=== PATIENT | male | born 1995 | race Caucasian/White ===

== ENCOUNTER 2017-06-24 07:39 | Emergency (ER) | payer SELFPAY ==
[~2017-06-24] VITALS: Ht 175.3 cm; Wt 54.4 kg
[~2017-06-24 07:39] MED LIST: NAPR500T PO; TRAM50TA2 PO
[2017-06-24] MEDS ORDERED: IBUPROFEN 800 MG (MOTRIN) TAB PO STA (09:29)
--- NOTE | 2017-06-24 09:29 | ED Integumentary General ---
General Chief Complaint: Skin/Wound Problems Stated Complaint: POSS SPIDER BITE Nursing Triage Note: PT STATES HAS SPIDER BITE FROM FRIDAY, STATES DID SEE SPIDER THAT BIT HIM, UPPER AREA R RIB AREA REDDEND AREA WITH BITE AREA NOTED Source: patient Exam Limitations: no limitations History of Present Illness Time seen by provider: 09:00 Initial Comments Here with report of spider bite to his right flank. States that he felt something crawling inside [employer] it and found the spider in her shirt. Subsequently had a right onto his right flank. This occurred a couple days ago and the pain has worsened. States that he was not able to sleep last night due to pain. Denies other injury or concerns. Timing/Duration: getting worse Severity: moderate Location: torso Possible Cause: insect bite Associated Symptoms: edema, No fever, No flushing, No rash Allergies and Home Medications Allergies Coded Allergies: No Known Drug Allergies (Unverified , 09/04/16) Home Medications Tramadol HCl 50 Mg Tablet, 50 MG PO Q4H PRN for PAIN, #14 Ref 0 Prescribed by: TAMERA INFANTE on 09/04/16 4076 Constitutional: see HPI Respiratory: no symptoms reported Cardiovascular: no symptoms reported Gastrointestinal: no symptoms reported Skin: see HPI, change in color, lesions Past Fuudqft-Njueok-Uxqpms Hx Patient Social History Alcohol Use: Rarely Uses Number of Drinks Today: 0 Alcohol Beverage of Choice: Beer Recreational Drug Use: No Smoking Status: Current Everyday Smoker Type Used: Cigarettes Recent Foreign Travel: No Contact w/Someone Who Travel: No Recent Infectious Disease Expo: No Recent Hopitalizations: No Physical Abuse: No Sexual Abuse: No Immunizations Up To Date Tetanus Booster (TDap): More than 5yrs Seasonal Allergies Seasonal Allergies: No Surgeries History of Surgeries: No Respiratory History of Respiratory Disorde: No Cardiovascular History of Cardiac Disorders: No Neurological History of Neurological Disord: No Reproductive System Hx Reproductive Disorders: No Gastrointestinal History of Gastrointestinal Di: No Musculoskeletal History of Musculoskeletal Dis: No Endocrine History of Endocrine Disorders: No Cancer History of Cancer: No Psychosocial History of Psychiatric Problem: No Suicide Risk Score: 0 Integumentary History of Skin or Integumenta: No Blood Transfusions History of Blood Disorders: No Adverse Reaction to a Blood Tr: No Reviewed Nursing Assessment Reviewed/Agree w Nursing PMH: Yes Family Medical History Significant Family History: No Pertinent Family Hx Physical Exam Vital Signs Vital Sign - Last 12Hours 06/24/17 08:00 Temp 98.3 Pulse 106 Resp 18 B/P (MAP) 121/76 Pulse Ox 99 Capillary Refill : Less Than 3 Seconds General Appearance: WD/WN, no apparent distress Cardiovascular: regular rate, rhythm, no murmur Respiratory: lungs clear, normal breath sounds Gastrointestinal: non tender, soft Skin: warm/dry, other (0.5 x 0.5 cm central nodules surrounded by 2 x 2 centimeter area of induration and inflammation to the right flank below the rib line. Very tender to palpation. No obvious fluctuance.) Progress/Results/Core Measures Results/Orders My Orders Orders - ALFONSO MEHTA MD Ibuprofen Tablet (Motrin Tablet) (06/24/17 09:29) Vital Signs/I&O Vital Sign - Last 12Hours 06/24/17 08:00 Temp 98.3 Pulse 106 Resp 18 B/P (MAP) 121/76 Pulse Ox 99 Blood Pressure Mean: 91 Progress Note : Progress Note Seen and evaluated. Ibuprofen 800 mg by mouth given. Discharged home with return precautions. Patient verbalize understanding instructions and agreement with plan. Departure Impression Impression: Primary Impression: Spider bite wound Qualified Codes: T63.304A - Toxic effect of unspecified spider venom, undetermined, initial encounter Disposition: 01 HOME, SELF-CARE Condition: Stable Departure-Patient Inst. Decision time for Depature: 09:32 Referrals: NO,LOCAL PHYSICIAN (PCP/Family) Primary Care Physician Patient Instructions: Spider Bites Add. Discharge Instructions: All discharge instructions reviewed with patient and/or family. Voiced understanding. You may use antibiotic ointment with pain relief over wound twice daily as needed. You may take ibuprofen 800 mg every 8 hours as needed for pain. You may take Tylenol 1000 mg every 8 hours as needed for pain if you're not taking the prescribed pain medicine as they both have acetaminophen in them. Follow up with your DrDestin in a few days for recheck. Return for worse pain, fever, vomiting, weakness, breathing problems or other concerns as needed. Scripts Hydrocodone/Acetaminophen (Hydrocodon -Acetaminophen 5-325) 1 Each Tablet 1-2 EACH PO Q6H Y for PAIN-MODERATE, #5 TAB 0 Refills Prov: ALFONSO MEHTA MD 06/24/17 ALFONSO MEHTA MD Jun 24, 2017 09:29
[2017-06-24] MEDS ORDERED: HYDR-3812 PO (09:34)
[2017-06-24 09:39] VITALS: BP 121/76
== END 2017-06-24 09:39 | disposition home or self-care (01) ==
LOC: EDUNIT# 07:39 → ER 07:42
DX: S30.861A Insect bite (nonvenomous) of abdominal wall, initial encounter (principal); F17.210 Nicotine dependence, cigarettes, uncomplicated; W57.XXXA Bitten or stung by nonvenomous insect and other nonvenomous arthropods, initial encounter
CPT/HCPCS: 99283

== ENCOUNTER 2017-08-03 17:50 | Emergency (ER) | payer SELFPAY ==
[~2017-08-03] VITALS: Ht 175.3 cm; Wt 54.4 kg
[~2017-08-03 17:50] MED LIST changes: +HYDR-3812 PO
[2017-08-03] MEDS ORDERED: NS IV 1000 ML 1,000 ML IV SCH (18:30)
[2017-08-03] MEDS ORDERED: KETOROLAC 30 MG/ML VIAL IVP ONE (18:30)
[2017-08-03 18:35] LABS: BILIRUBIN,URINE NEGATIVE (NEGATIVE); KETONES,URINE NEGATIVE (NEGATIVE); LEUKOCYTE ESTERASE ,URINE 1+ (NEGATIVE); NITRITE,URINE NEGATIVE (NEGATIVE); PH,URINE 7 (5-9); PROTEIN,URINE NEGATIVE (NEGATIVE); UROBILINOGEN,URINE 4 MG/DL (NORMAL)
[2017-08-03 18:35] LABS: BASOPHILS % (AUTO) 0 % (0-10); EOSINOPHILS # (AUTO) 0.3 10^3/uL (0.0-0.3); EOSINOPHILS % (AUTO) 3 % (0-10); LYMPHOCYTES % (AUTO) 28 % (12-44); MEAN CORPUSCULAR HEMOGLOBIN 29 PG (25-34); MEAN CORPUSCULAR HGB CONC 33 G/DL (32-36); MEAN CORPUSCULAR VOLUME 88 FL (80-99); MEAN PLATELET VOLUME 10.4 FL (7.4-10.4); MONOCYTES # (AUTO) 0.4 X 10^3 (0.0-1.0); MONOCYTES % (AUTO) 6 % (0-12); NEUTROPHILS # (AUTO) 4.6 X 10^3 (1.8-7.8); NEUTROPHILS % (AUTO) 62 % (42-75); PLATELET COUNT 169 10^3/uL (130-400); RED CELL DISTRIBUTION WIDTH 12.7 % (10.0-14.5); WHITE BLOOD COUNT 7.3 10^3/uL (4.3-11.0)
[2017-08-03 18:53] LABS: ALANINE AMINOTRANSFERASE 8 U/L (0-55); ALBUMIN 4.5 GM/DL (3.2-4.5); ANION GAP 11 MMOL/L (5-14); ASPARTATE AMINO TRANSFERASE 14 U/L (5-34); BILIRUBIN,TOTAL 1.6 MG/DL (0.1-1.0); BLOOD UREA NITROGEN 13 MG/DL (7-18); BUN/CREATININE RATIO 13; CALCIUM 9.5 MG/DL (8.5-10.1); CARBON DIOXIDE 23 MMOL/L (21-32); CHLORIDE 106 MMOL/L (98-107); CREATININE SERUM 1.04 MG/DL (0.60-1.30); GFR ESTIMATED > 60; GLUCOSE 114 MG/DL (70-105); POTASSIUM 4.4 MMOL/L (3.6-5.0); SODIUM 140 MMOL/L (135-145); TOTAL PROTEIN 7.5 GM/DL (6.4-8.2)
[2017-08-03] MEDS ORDERED: IBUP-1780 PO (19:28)
[2017-08-03] MEDS ORDERED: HYDR-757 PO (19:28)
[2017-08-03] MEDS ORDERED: SULF1TAB35 PO (19:28)
[2017-08-03] MEDS ORDERED: TAMS0.4C98 PO (19:28)
--- NOTE | 2017-08-03 19:28 | ED GU-Male ---
General Chief Complaint: -Male Stated Complaint: R ABD PAIN Nursing Triage Note: ARRIVED VIA POV TO ROOM 06 WITHOUT DIFFICULTY. COMPLAINS OF LOWER ABD PAIN WHEN VOIDING FOR A COUPLE OF DAYS. Source: patient Exam Limitations: no limitations History of Present Illness Time seen by provider: 18:20 Initial Comments 1 to ER with reports of urinary frequency, sensation of incomplete bladder emptying, "peeing straight blood". He also has some pain in the right flank as well. This is been going on for couple of days. Timing/Duration: constant Severity/Quality: moderate Location: suprapubic Radiation: none Activities at Onset: none Prior Genitourinary Problems: none Associated Symptoms: dysuria Allergies and Home Medications Allergies Coded Allergies: No Known Drug Allergies (Unverified , 09/04/16) Home Medications Hydrocodone/Acetaminophen 1 Each Tablet, 1-2 EACH PO Q6H PRN for PAIN-MODERATE, #5 Ref 0 Prescribed by: ALFONSO MEHTA on 06/24/17 0934 Hydrocodone/Acetaminophen 1 Each Tablet, 1 EACH PO Q4H PRN for PAIN-SEVERE, #14 Prescribed by: BEENA DONOVAN on 08/03/17 192 Ibuprofen 800 Mg Tablet, 800 MG PO Q8H PRN for PAIN, #30 Prescribed by: BEENA DONOVAN on 08/03/17 192 Sulfamethoxazole/Trimethoprim 1 Each Tablet, 1 EACH PO BID, #10 Prescribed by: BEENA DONOVAN on 08/03/17 192 Tamsulosin HCl 0.4 Mg Cap, 0.4 MG PO DAILY, #14 Prescribed by: BEENA DONOVAN on 08/03/171927 Tramadol HCl 50 Mg Tablet, 50 MG PO Q4H PRN for PAIN, #14 Ref 0 Prescribed by: TAMERA INFANTE on 09/04/16 180 Constitutional: see HPI EENTM: see HPI Respiratory: no symptoms reported Cardiovascular: no symptoms reported Genitourinary: see HPI, dysuria Musculoskeletal: no symptoms reported Skin: no symptoms reported Psychiatric/Neurological: No Symptoms Reported Endocrine: No Symptoms Reported Hematologic/Lymphatic: No Symptoms Reported Past Ildvvst-Rbkvnl-Bqzeby Hx Patient Social History Alcohol Use: Occasionally Uses Number of Drinks Today: AA Alcohol Beverage of Choice: Beer Recreational Drug Use: Yes (POT) Smoking Status: Current Everyday Smoker Type Used: Cigarettes Recent Foreign Travel: No Contact w/Someone Who Travel: No Recent Infectious Disease Expo: No Recent Hopitalizations: No Immunizations Up To Date Tetanus Booster (TDap): More than 5yrs Seasonal Allergies Seasonal Allergies: No Surgeries History of Surgeries: No Respiratory History of Respiratory Disorde: No Cardiovascular History of Cardiac Disorders: No Neurological History of Neurological Disord: No Reproductive System Hx Reproductive Disorders: No Gastrointestinal History of Gastrointestinal Di: No Musculoskeletal History of Musculoskeletal Dis: No Endocrine History of Endocrine Disorders: No HEENT History of HEENT Disorders: No Cancer History of Cancer: No Did You Recieve Any Treatments: No Psychosocial History of Psychiatric Problem: No Integumentary History of Skin or Integumenta: No Blood Transfusions History of Blood Disorders: No Adverse Reaction to a Blood Tr: No Family Medical History Significant Family History: No Pertinent Family Hx Physical Exam Vital Signs Vital Sign - Last 12Hours 08/03/17 18:20 Temp 98.0 Pulse 74 Resp 18 B/P (MAP) 124/83 Pulse Ox 98 Capillary Refill : Less Than 3 Seconds General Appearance: WD/WN, no apparent distress HEENT: PERRL/EOMI, normal ENT inspection Neck: non-tender, full range of motion Respiratory: normal breath sounds, no respiratory distress, no accessory muscle use Gastrointestinal: normal bowel sounds, non tender, soft Neurologic/Psychiatric: alert, normal mood/affect, oriented x 3 Skin: normal color, warm/dry Progress/Results/Core Measures Results/Orders Lab Results Laboratory Tests Test 08/03/17 18:25 08/03/17 18:30 Range/Units White Blood Count 7.3 4.3-11.0 10^3/uL Red Blood Count 5.40 4.35-5.85 10^6/uL Hemoglobin 15.8 13.3-17.7 G/DL Hematocrit 47 40-54 % Mean Corpuscular Volume 88 80-99 FL Mean Corpuscular Hemoglobin 29 25-34 PG Mean Corpuscular Hemoglobin Concent 33 32-36 G/DL Red Cell Distribution Width 12.7 10.0-14.5 % Platelet Count 169 130-400 10^3/uL Mean Platelet Volume 10.4 7.4-10.4 FL Neutrophils (%) (Auto) 62 42-75 % Lymphocytes (%) (Auto) 28 12-44 % Monocytes (%) (Auto) 6 0-12 % Eosinophils (%) (Auto) 3 0-10 % Basophils (%) (Auto) 0 0-10 % Neutrophils # (Auto) 4.6 1.8-7.8 X 10^3 Lymphocytes # (Auto) 2.0 1.0-4.0 X 10^3 Monocytes # (Auto) 0.4 0.0-1.0 X 10^3 Eosinophils # (Auto) 0.3 0.0-0.3 10^3/uL Basophils # (Auto) 0.0 0.0-0.1 10^3/uL Sodium Level 140 135-145 MMOL/L Potassium Level 4.4 3.6-5.0 MMOL/L Chloride Level 106 98-107 MMOL/L Carbon Dioxide Level 23 21-32 MMOL/L Anion Gap 11 5-14 MMOL/L Blood Urea Nitrogen 13 7-18 MG/DL Creatinine 1.04 0.60-1.30 MG/DL Estimat Glomerular Filtration Rate > 60 BUN/Creatinine Ratio 13 Glucose Level 114 H 70-105 MG/DL Calcium Level 9.5 8.5-10.1 MG/DL Total Bilirubin 1.6 H 0.1-1.0 MG/DL Aspartate Amino Transf (AST/SGOT) 14 5-34 U/L Alanine Aminotransferase (ALT/SGPT) 8 0-55 U/L Alkaline Phosphatase 76 40-136 U/L Total Protein 7.5 6.4-8.2 GM/DL Albumin 4.5 3.2-4.5 GM/DL Urine Color YELLOW Urine Clarity SLIGHTLY CLOUDY Urine pH 7 5-9 Urine Specific [place] 1.010 L 1.016-1.022 Urine Protein NEGATIVE NEGATIVE Urine Glucose (UA) NEGATIVE NEGATIVE Urine Ketones NEGATIVE NEGATIVE Urine Nitrite NEGATIVE NEGATIVE Urine Bilirubin NEGATIVE NEGATIVE Urine Urobilinogen 4 H NORMAL MG/DL Urine Leukocyte Esterase 1+ H NEGATIVE Urine RBC (Auto) 3+ H NEGATIVE Urine RBC 5-10 H /HPF Urine WBC 2-5 /HPF Urine Crystals PRESENT H /LPF Urine Amorphous Sediment MOD ANASTASIA URATES H /LPF Urine Bacteria NONE /HPF Urine Casts NONE /LPF Urine Mucus NONE /LPF Urine Culture Indicated NO My Orders Orders - BEENA DONOVAN [employer] Cbc With Automated Diff (08/03/17 18:28) Comprehensive Metabolic Panel (08/03/17 18:28) Ua Culture If Indicated (08/03/17 18:28) Chlamydia Dna Urine Test (08/03/17 18:28) Neis Axel Dna Urine Test (08/03/17 18:28) Saline Lock/Iv-Start (08/03/17 18:28) Ketorolac Injection (Toradol Injection) (08/03/17 18:30) Ns Iv 1000 Ml (Sodium Chloride 0.9%) (08/03/17 18:30) Ct Abd/Pelvis Wo(Kidney Stone) (08/03/17 18:58) Medications Given in ED Current Medications Medications Dose Ordered Sig/Chandler Route Start Time Stop Time Status Last Admin Dose Admin Ketorolac Tromethamine 30 mg ONCE ONCE IVP 08/03/17 18:30 08/03/17 18:31 DC 08/03/17 18:38 30 MG Vital Signs/I&O Vital Sign - Last 12Hours 08/03/17 18:20 Temp 98.0 Pulse 74 Resp 18 B/P (MAP) 124/83 Pulse Ox 98 Blood Pressure Mean: 97 Diagnostic Imaging Diagonstic Imaging: CT Comments NAME: OMARISTEVEN Fermin MED REC#: [id number] PT STATUS: REG ER : 1995 PHYSICIAN: BEENA DONOVAN [employer] ADMIT DATE: 08/03/17/ER Draft Date of Exam:08/03/17 CT ABD/PELVIS WO(KIDNEY STONE) PROCEDURE: CT urinary tract, rule out kidney stone. TECHNIQUE: Multiple contiguous axial images were obtained through the abdomen and pelvis without the use of intravenous contrast. INDICATION: Right flank pain. COMPARISON: None. FINDINGS: The lung bases are clear. The gallbladder, liver, spleen, pancreas, adrenal glands and right kidney unremarkable. There is questionable left-sided hydronephrosis and hydroureter. There is possibly a 3 mm obstructive stone in the distal left ureter. Due to the lack of abdominal fat, anatomy is difficult to fully separate. There is moderate constipation of the colon without obstruction. The urinary bladder is unremarkable. There is no overt prostate enlargement. No obvious inflammation seen. Osseous structures normal. IMPRESSION: Questionable left-sided hydronephrosis and hydroureter secondary to a 3 mm stone in the distal left ureter versus phlebolith. This could be further evaluated with postcontrast imaging with delayed renal urogram. Dictated on workstation # [id number] Dict: 08/03/171919 Trans: 08/03/171931 [facility] [id number] Interpreted by: MAYUR WHEELER Electronically signed by: Departure Communication (Admissions) Progress Notes 1923-patient states that his pain is completely gone after the Toradol and fluids. Impression Impression: Primary Impression: Left ureteral stone Disposition: HOME, SELF-CARE Condition: Improved Departure-Patient Inst. Decision time for Depature: 19:25 Referrals: NO,LOCAL PHYSICIAN (PCP/Family) Primary Care Physician Patient Instructions: Kidney Stones (DC) Add. Discharge Instructions: 1. Take medication as directed 2. Follow up with Dr Hendrix later this week 3. All discharge instructions reviewed with patient and/or family. Voiced understanding. Scripts Hydrocodone/Acetaminophen ([place] 5-325 Tablet) 1 Each Tablet 1 EACH PO Q4H Y for PAIN-SEVERE, #14 TAB Prov: BEENA DONOVAN APRN 08/03/17 Ibuprofen (Ibuprofen) 800 Mg Tablet 800 MG PO Q8H Y for PAIN, #30 TAB Prov: BEENA DONOVAN APRN 08/03/17 Tamsulosin HCl (Flomax) 0.4 Mg Cap 0.4 MG PO DAILY, #14 CAP Prov: BEENA DONOVAN APRN 08/03/17 Sulfamethoxazole/Trimethoprim (Bactrim Ds Tablet) 1 Each Tablet 1 EACH PO BID, #10 TAB Prov: BEENA DONOVAN APRN 08/03/17 BEENA DONOVAN APRN Aug 03, 2017 19:28
--- NOTE | 2017-08-03 19:33 | Diagnostic Imaging Report ---
PROCEDURE: CT urinary tract, rule out kidney stone. TECHNIQUE: Multiple contiguous axial images were obtained through the abdomen and pelvis without the use of intravenous contrast. INDICATION: Right flank pain. COMPARISON: None. FINDINGS: The lung bases are clear. The gallbladder, liver, spleen, pancreas, adrenal glands and right kidney unremarkable. There is questionable left-sided hydronephrosis and hydroureter. There is possibly a 3 mm obstructive stone in the distal left ureter. Due to the lack of abdominal fat, anatomy is difficult to fully separate. There is moderate constipation of the colon without obstruction. The urinary bladder is unremarkable. There is no overt prostate enlargement. No obvious inflammation seen. Osseous structures normal. IMPRESSION: Questionable left-sided hydronephrosis and hydroureter secondary to a 3 mm stone in the distal left ureter versus phlebolith. This could be further evaluated with postcontrast imaging with delayed renal urogram. Dictated by: Dictated on workstation # [id number]
[2017-08-03 19:53] VITALS: BP 124/83
[2017-08-04] MEDS ORDERED: ONDA4TAB8 PO (02:52)
[2017-08-06 08:06] LABS: CHLAMYDIA DNA URINE Not Detected (Not Detected); NEISSERIA GONORRHEA DNA URINE Not Detected (Not Detected)
== END 2017-08-03 19:55 | disposition home or self-care (01) ==
LOC: EDUNIT# 17:50 → ER 17:52
DX: N20.1 Calculus of ureter (principal); F17.210 Nicotine dependence, cigarettes, uncomplicated
CPT/HCPCS: 36415; 74176; 80053; 81000; 85025; 87491; 87591; 99282

== ENCOUNTER 2017-08-04 00:32 | Emergency (ER) | payer SELFPAY ==
[~2017-08-04] VITALS: Ht 165.1 cm; Wt 49.9 kg
[~2017-08-04 00:32] MED LIST changes: +HYDR-757 PO; +IBUP-1780 PO; +SULF1TAB35 PO; +TAMS0.4C98 PO
[2017-08-04] MEDS ORDERED: LACTATED RINGERS 1,000 ML IV ONE ×2 (00:38→01:48)
[2017-08-04] MEDS ORDERED: KETOROLAC 30 MG/ML VIAL IVP STA (00:38)
[2017-08-04] MEDS ORDERED: ONDANSETRON 4 MG/2 ML (SDV) Z0FRAN IVP ONE (00:45)
[2017-08-04] MEDS ORDERED: morphine INJ 10 MG/ML 1ML (SYR OR VIAL) ONE (00:49)
[2017-08-04] MEDS ORDERED: morphine INJ 10 MG/ML 1ML (SYR OR VIAL) IVP STA ×4 (00:57→02:29)
--- NOTE | 2017-08-04 01:18 | ED Abdominal Pain ---
General Chief Complaint: Abdominal/GI Problems Stated Complaint: KIDNEY STONES Nursing Triage Note: recent diagnosis with kidney stone, complaint of pelvic pain and vomitting Sepsis Screen: No Definite Risk Source of Information: Patient, Old Records History of Present Illness Time Seen By Provider: 00:28 Initial Comments PT ARRIVES VIA POV FROM HOME SEEN IN ER EARLIER THIS EVENING AND DX WITH KIDNEY STONE ( NEVER HAD KIDNEY STONES BEFORE) --SENT HOME WITH RX'S FOR HYDROCODONE, IBUPROFEN, FLOMAX, BACTRIM , BUT NOT SENT HOME WITH ANY MEDICATIONS PT STATES EARLIER, THE PAIN WAS IN RIGHT FLANK AND RLQ AND HAD A LITTLE PAIN IN SUPRAPUBIC AREA--PAIN HAD IMPROVED AT TIME OF DISMISSAL FROM ER--CT SHOWED LEFT DISTAL URETERAL STONE 15-20 MINUTES PRIOR TO ARRIVAL, PAIN BECAME SEVERE AND IS NOW ALL IN SUPRAPUBIC AREA, AND "FEELS LIKE HIS TESTICLES ARE IN A VISE"--NO FLANK PAIN NOW PT HAS HAD NAUSEA AND VOMITED X 3 JUST PRIOR TO ARRIVAL PT STATES HE VOIDED ONCE SINCE HE WAS DISMISSED FROM ER EARLIER, AND NOW HAS URGENCY BUT IS UNABLE TO VOID NO FEVER MULTIPLE FAMILY MEMBERS WITH KIDNEY STONES Allergies and Home Medications Allergies Coded Allergies: No Known Drug Allergies (Unverified , 09/04/16) Home Medications Hydrocodone/Acetaminophen 1 Each Tablet, 1-2 EACH PO Q6H PRN for PAIN-MODERATE, #5 Ref 0 Prescribed by: ALFONSO MEHTA on 06/24/17 0934 Hydrocodone/Acetaminophen 1 Each Tablet, 1 EACH PO Q4H PRN for PAIN-SEVERE, #14 Prescribed by: BEENA DONOVAN on 08/03/171927 Ibuprofen 800 Mg Tablet, 800 MG PO Q8H PRN for PAIN, #30 Prescribed by: BEENA DONOVAN on 08/03/171927 Ondansetron 4 Mg Tab.rapdis, 4 MG PO Q4H, #10 Prescribed by: WEI BURDICK on 08/04/17 0252 Sulfamethoxazole/Trimethoprim 1 Each Tablet, 1 EACH PO BID, #10 Prescribed by: BEENA DONOVAN on 08/03/171927 Tamsulosin HCl 0.4 Mg Cap, 0.4 MG PO DAILY, #14 Prescribed by: BEENA DONOVAN on 08/03/171927 Tramadol HCl 50 Mg Tablet, 50 MG PO Q4H PRN for PAIN, #14 Ref 0 Prescribed by: TAMERA INFANTE on 09/04/16 1806 Review of Systems Constitutional: no symptoms reported Gastrointestinal: See HPI, Abdominal Pain Genitourinary: See HPI Musculoskeletal: see HPI Past Vorynip-Sqzzrf-Zfxpzt Hx Patient Social History Alcohol Use: Occasionally Uses Alcohol Beverage of Choice: Beer Recreational Drug Use: No Smoking Status: Current Everyday Smoker Type Used: Cigarettes Recent Foreign Travel: No Contact w/Someone Who Travel: No Recent Infectious Disease Expo: No Recent Hopitalizations: No Immunizations Up To Date Tetanus Booster (TDap): More than 5yrs Seasonal Allergies Seasonal Allergies: No Surgeries History of Surgeries: No Respiratory History of Respiratory Disorde: No Cardiovascular History of Cardiac Disorders: No Neurological History of Neurological Disord: No Reproductive System Hx Reproductive Disorders: No Genitourinary History of Genitourinary Disor: Yes (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) Genitourinary Disorders: Kidney Stones Gastrointestinal History of Gastrointestinal Di: No Musculoskeletal History of Musculoskeletal Dis: No Endocrine History of Endocrine Disorders: No HEENT History of HEENT Disorders: No Cancer History of Cancer: No Did You Recieve Any Treatments: No Psychosocial History of Psychiatric Problem: No Integumentary History of Skin or Integumenta: No Blood Transfusions History of Blood Disorders: No Adverse Reaction to a Blood Tr: No Physical Exam Vital Signs VS - Last 72 Hours, by Label 08/04/17 08/04/17 00:50 03:00 Temp 98.9 98.9 Pulse 92 92 Resp 20 B/P (MAP) 149/97 Pulse Ox 97 O2 Delivery Room Air Room Air Capillary Refill : Less Than 3 Seconds General Appearance: thin, other (ANXIOUS, WRITHING, CRYING, HOLDING LOWER ABDOMEN) Respiratory: normal breath sounds Cardiovascular: tachycardia Gastrointestinal: soft, tenderness (SUPRAPUBIC) Back: no CVA tenderness Neurologic/Psychiatric: no motor/sensory deficits, alert, oriented x 3 Skin: normal color, warm/dry Progress/Results/Core Measures Results/Orders My Orders Orders - WEI BURDICK DO Saline Lock/Iv-Start (08/04/17 00:38) Ketorolac Injection (Toradol Injection) (08/04/17 00:38) Ondansetron Injection (Zofran Injectio (08/04/17 00:45) Saline Lock/Iv-Start (08/04/17 00:38) Lactated Ringers (Lr 1000 Ml Iv Solution (08/04/17 00:38) Morphine Injection (Morphine Injection (08/04/17 00:57) Morphine Injection (Morphine Injection (08/04/17 00:49) Morphine Injection (Morphine Injection (08/04/17 01:21) Morphine Injection (Morphine Injection (08/04/17 01:48) Saline Lock/Iv-Start (08/04/17 01:48) Lactated Ringers (Lr 1000 Ml Iv Solution (08/04/17 01:48) Abdomen/Kub 1view (08/04/17 01:48) Morphine Injection (Morphine Injection (08/04/17 02:00) Alfuzosin Tablet (Uroxatral Tablet) (08/04/17 02:30) Morphine Injection (Morphine Injection (08/04/17 02:29) Rx-Hydrocodone/Apap 5-325 Mg (Rx-Vicodin (08/04/17 03:00) Rx-Ondansetron Po (Rx-Zofran Po) (08/04/17 02:51) Medications Given in ED Current Medications Medications Dose Ordered Sig/Chandler Route Start Time Stop Time Status Last Admin Dose Admin Acetaminophen/ Hydrocodone Bitart 1 ea Q4H PRN PO 08/04/17 03:00 08/04/17 03:19 DC 08/04/17 03:00 1 EA Lactated Ringer's 1,000 ml @ 0 mls/hr Q0M ONCE IV 08/04/17 00:38 08/04/17 00:39 DC 08/04/17 00:44 0 MLS/HR Lactated Ringer's 1,000 ml @ 0 mls/hr Q0M ONCE IV 08/04/17 01:48 08/04/17 01:49 DC 08/04/17 01:53 0 MLS/HR Morphine Sulfate 5 mg ONCE ONCE IVP 08/04/17 02:00 08/04/17 02:01 DC 08/04/17 02:35 5 MG Ondansetron HCl 4 mg ONCE ONCE IVP 08/04/17 00:45 08/04/17 00:46 DC 08/04/17 00:44 4 MG Vital Signs/I&O Vital Sign - Last 12Hours 08/04/17 08/04/17 00:50 03:00 Temp 98.9 98.9 Pulse 92 92 Resp 20 B/P (MAP) 149/97 Pulse Ox 97 O2 Delivery Room Air Room Air Blood Pressure Mean: 114 Progress Note : Progress Note PAIN EASED WITH MEDICATIONS, AND PT ABLE TO VOID--VOIDED > 300 ML IN ER AND URINE PALE AND CLEAR. NO OBVIOUS STONE PASSED IN ER NAUSEA GONE AND PT ABLE TO TOLERATE WATER AND ICE CHIPS Diagnostic Imaging Comments KUB--NO ACUTE PROCESS, UNABLE TO IDENTIFY STONE--PENDING RADIOLOGIST REVIEW Reviewed: Reviewed by Me Departure Impression Impression: Primary Impression: Ureteral stone Disposition: HOME, SELF-CARE Condition: Improved Departure-Patient Inst. Referrals: NO,LOCAL PHYSICIAN (PCP) Primary Care Physician LIDIA SHAIKH MD Patient Instructions: Kidney Stones (DC) Add. Discharge Instructions: STRAIN ALL URINE--RETURN ANY STONES TO UROLOGIST OFFICE FOLLOW UP WITH DR. SHAIKH OR UROLOGIST OF CHOICE FOR FURTHER CARE--CALL IN AM FOR APPOINTMENT. RETURN TO ER IF WORSE All discharge instructions reviewed with patient and/or family. Voiced understanding. Scripts Ondansetron (Zofran Odt) 4 Mg Tab.rapdis 4 MG PO Q4H for Nausea/Vomiting, #10 TAB Prov: WEI BURDICK DO 08/04/17 WEI BURDICK DO Aug 04, 2017 01:18
[2017-08-04] MEDS ORDERED: morphine INJ 10 MG/ML 1ML (SYR OR VIAL) IVP ONE (02:00)
[2017-08-04] MEDS ORDERED: ALFUZOSIN HCL 10 MG TAB (UROXATRAL) PO SCH (02:30)
[2017-08-04] MEDS ORDERED: RX-ONDANSETRON 4 MG ODT (ZOFRAN) PPK #4 PO STA (02:51)
[2017-08-04] MEDS ORDERED: ONDA4TAB8 PO (02:52)
[2017-08-04 03:00] VITALS: BP 149/97
[2017-08-04] MEDS ORDERED: RX-HYDROCODONE/APAP 5/325 MG #4 TAB PK PO PRN (03:00)
--- NOTE | 2017-08-04 07:12 | Diagnostic Imaging Report ---
INDICATION: Pelvic pain. FINDINGS: The bowel gas pattern is nonspecific. There are no abnormal abdominal calcifications. The osseous structures are unremarkable. IMPRESSION: Nonspecific bowel gas pattern. Dictated by: Dictated on workstation # [id number]
== END 2017-08-04 03:00 | disposition home or self-care (01) ==
LOC: EDUNIT# 00:32 → ER 00:34
DX: N20.1 Calculus of ureter (principal); F17.210 Nicotine dependence, cigarettes, uncomplicated
CPT/HCPCS: 74000

== ENCOUNTER 2017-10-22 11:50 | Emergency (ER) | payer SELFPAY ==
[~2017-10-22] VITALS: Ht 177.8 cm; Wt 59.0 kg
[~2017-10-22 11:50] MED LIST changes: +ACHD5005 PO; -HYDR-3812 PO; +NAPR-1071 PO; -NAPR500T PO; +ONDA4TAB8 PO
[2017-10-22] MEDS ORDERED: IBUPROFEN TABLET 200 MG TAB PO STA (12:01)
--- NOTE | 2017-10-22 12:33 | ED Cough/URI ---
General Chief Complaint: Fever-Adult/Adol Stated Complaint: FEVER 102.5 Nursing Triage Note: TO ROOM 07 VIA AMB. COMPLAINS OF FEVER, SORE THROAT, AND HEADACHE X2 DAYS. History of Present Illness Time seen by provider: 11:50 Initial Comments 22-year-old male presents for fever, sore throat and headache for 2 days. He has had no Tylenol or ibuprofen prior to arrival. He did not receive a flu vaccination this year. He had nausea and vomiting yesterday, he has had little by mouth intake today but denies nausea today. Timing/Duration: yesterday Severity/Quality: mild, dry cough Prior Episodes/Possible Cause: no prior episodes Modifying Factors: Improves With Rest Associated Symptoms: cough, earache, facial pain, fever/chills, headache, nasal congestion, sore throat Allergies and Home Medications Allergies Coded Allergies: No Known Drug Allergies (Unverified , 09/04/16) Home Medications Hydrocodone Bit/Acetaminophen 1 Each Tablet, 1-2 EACH PO Q6H PRN for PAIN- MODERATE, #5 Ref 0 Prescribed by: ALFONSO MEHTA on 06/24/17 0934 Hydrocodone/Acetaminophen 1 Each Tablet, 1 EACH PO Q4H PRN for PAIN-SEVERE, #14 Prescribed by: BEENA DONOVAN on 08/03/171927 Ibuprofen 800 Mg Tablet, 800 MG PO Q8H PRN for PAIN, #30 Prescribed by: BEENA DONOVAN on 08/03/171927 Ondansetron 4 Mg Tab.rapdis, 4 MG PO Q4H, #10 Prescribed by: WEI BURDICK on 08/04/17 0252 Sulfamethoxazole/Trimethoprim 1 Each Tablet, 1 EACH PO BID, #10 Prescribed by: BEENA DONOVAN on 08/03/171927 Tamsulosin HCl 0.4 Mg Cap, 0.4 MG PO DAILY, #14 Prescribed by: BEENA DONOVAN on 08/03/171927 Tramadol HCl 50 Mg Tablet, 50 MG PO Q4H PRN for PAIN, #14 Ref 0 Prescribed by: TAMERA INFANTE on 09/04/16 180 Constitutional: see HPI, fever, malaise, weakness EENTM: see HPI, nose congestion, throat pain Respiratory: see HPI, cough Cardiovascular: no symptoms reported, see HPI Gastrointestinal: see HPI, nausea Genitourinary: no symptoms reported, see HPI All Other Systems Reviewed Negative Unless Noted: Yes Past Hxpbtdj-Imzmyj-Gmtmwi Hx Patient Social History Alcohol Use: Occasionally Uses Number of Drinks Today: AA Alcohol Beverage of Choice: Beer Recreational Drug Use: No Smoking Status: Current Everyday Smoker Type Used: Cigarettes Recent Foreign Travel: No Contact w/Someone Who Travel: No Recent Infectious Disease Expo: No Recent Hopitalizations: No Immunizations Up To Date Tetanus Booster (TDap): More than 5yrs Seasonal Allergies Seasonal Allergies: No Surgeries History of Surgeries: No Respiratory History of Respiratory Disorde: No Cardiovascular History of Cardiac Disorders: No Neurological History of Neurological Disord: No Reproductive System Hx Reproductive Disorders: No Genitourinary History of Genitourinary Disor: Yes (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) Genitourinary Disorders: Kidney Stones Gastrointestinal History of Gastrointestinal Di: No Musculoskeletal History of Musculoskeletal Dis: No Endocrine History of Endocrine Disorders: No HEENT History of HEENT Disorders: No Cancer History of Cancer: No Did You Recieve Any Treatments: No Psychosocial History of Psychiatric Problem: No Integumentary History of Skin or Integumenta: No Blood Transfusions History of Blood Disorders: No Adverse Reaction to a Blood Tr: No Reviewed Nursing Assessment Reviewed/Agree w Nursing PMH: Yes Physical Exam Vital Signs Vital Sign - Last 12Hours 10/22/17 11:52 Temp 101.8 Pulse 98 Resp 18 B/P (MAP) 130/74 (92) Pulse Ox 98 O2 Delivery Room Air Capillary Refill : Less Than 3 Seconds General Appearance: WD/WN, mild distress Eyes: Bilateral Eye Normal Inspection, Bilateral Eye PERRL, Bilateral Eye EOMI HEENT: PERRL/EOMI, TMs normal, pharyngeal erythema (right), tonsillar exudate, other (tonsils 2+) Neck: non-tender, supple, lymphadenopathy (R), lymphadenopathy (L) Respiratory: chest non-tender, lungs clear, normal breath sounds Cardiovascular: normal peripheral pulses, regular rate, rhythm Gastrointestinal: normal bowel sounds, non tender, soft Extremities: normal range of motion, non-tender, normal capillary refill, other (skin turgor less than 2 seconds) Neurologic/Psychiatric: no motor/sensory deficits, alert, normal mood/affect, oriented x 3 Skin: normal color, warm/dry Progress/Results/Core Measures Suspected Sepsis Recent Fever Within 48 Hours: Yes Infection Criteria Present: Suspected New Infection New/Unexplained Altered Menta: No Sepsis Screen: Possible Sepsis Risk Sepsis Diagnosis: SIRS Temperature:101.8 Pulse: 98 Respiratory Rate: 18 Blood Pressure 130 /74 Mean: 92 Results/Orders Lab Results Laboratory Tests Test 10/22/17 12:00 Range/Units Group A Streptococcus Screen NEGATIVE NEGATIVE Micro Results Microbiology 10/22/17 Influenza Types A,B Antigen (GIOVANNA) - Final, Complete My Orders Orders - CHRISTIANO BAEZ HELEN Rapid Strep A Screen (10/22/17 12:01) Influenza A And B Antigens (10/22/17 12:01) Ibuprofen Tablet (Motrin Tablet) (10/22/17 12:01) Acetaminophen Tablet/Caplet (Tylenol T (10/22/17 13:02) Vital Signs/I&O Vital Sign - Last 12Hours 10/22/17 10/22/17 10/22/17 10/22/17 11:52 13:02 13:15 13:15 Temp 101.8 102.0 99.0 102.0 Pulse 98 98 Resp 18 18 B/P (MAP) 130/74 (92) Pulse Ox 98 98 O2 Delivery Room Air Capillary Refill : Less Than 3 Seconds Blood Pressure Mean: 92 Progress Note : Time: 11:50 Progress Note Initial evaluation completed, recommended influenza swab and rapid strep screen. Ibuprofen 600 mg for fever. Then will reevaluate. 1250 influenza and strep screens negative. Discharge planning and return precautions reviewed with patient, all questions answered. Departure Impression Impression: Primary Impression: Viral upper respiratory infection Additional Impression: Fever Qualified Codes: R50.9 - Fever, unspecified Disposition: HOME, SELF-CARE Condition: Stable Departure-Patient Inst. Decision time for Depature: 13:00 Referrals: NO,LOCAL PHYSICIAN (PCP/Family) Primary Care Physician Patient Instructions: Fever, Adult (DC), Cough, Runny Nose, and the Common Cold (DC) Add. Discharge Instructions: Alternate Tylenol 650 mg and ibuprofen 600 mg, every 4 hours. Increase fluid intake, hot or cold fluids. Increase rest. Warm salt water gargles every 2 hours while awake. Follow-up with primary care provider if symptoms are not improving in 2-3 days or worsen. Return to emergency department for fever greater than 101 not relieved by Tylenol or ibuprofen, difficulty breathing, persistent nausea and vomiting, or new problems. All discharge instructions reviewed with patient and/or family. Voiced understanding. CHRISTIANO BAEZ Oct 22, 2017 12:33
[2017-10-22] MEDS ORDERED: ACETAMINOPHEN 325 MG TABLET/CAPLET (TYLENOL) PO STA (13:02)
[2017-10-22 13:15] VITALS: BP 130/74
== END 2017-10-22 13:15 | disposition home or self-care (01) ==
LOC: EDUNIT# 11:50 → ER 11:52
DX: J06.9 Acute upper respiratory infection, unspecified (principal); F17.210 Nicotine dependence, cigarettes, uncomplicated; Z87.442 Personal history of urinary calculi
CPT/HCPCS: 87430; 87804; 99283

== ENCOUNTER 2022-07-15 23:07 | Emergency (ER) | payer BC ==
[~2022-07-15] VITALS: Ht 180 cm; Wt 65.7 kg
[~2022-07-15 23:07] MED LIST changes: +HYDR-4226 PO; -HYDR-757 PO; -SULF1TAB35 PO; +SULF1TAB38 PO; -TAMS0.4C98 PO; +TMSL.4C PO; -TRAM50TA2 PO; +TRM50T PO
[2022-07-16] MEDS ORDERED: TRAM-42 PO
[2022-07-16] MEDS ORDERED: LIDOCAINE 1% INJ 20 ML VIAL INJ ONE
[2022-07-16] MEDS ORDERED: KETOROLAC 60 MG/2 ML VIAL IM ONE
[2022-07-16] MEDS ORDERED: cefTRIAXone 1,000 MG VIAL IM ONE
[2022-07-16] MEDS ORDERED: AMOX1TAB12 PO
[2022-07-16] MEDS ORDERED: KETO10TA PO
--- NOTE | 2022-07-16 00:01 | ED EENT ---
History of Present Illness General Chief Complaint: Dental Problems/Pain Stated Complaint: DENTAL PAIN Nursing Triage Note: patient complaint of left sided mouth/dental pain. states radiates to ear/posterior head. patient verbalized worse pain ever had. states has "bad teeth...wisdom teeth need removed" Source: patient History of Present Illness Date Seen by Provider: Jul 15, 2022 Time Seen by Provider: 23:50 Initial Comments PT ARRIVES VIA POV FROM HOME WITH FEMALE C/O PAIN TO LEFT LOWER WISDOM TOOTH FOR THE LAST 1 1/2 HOURS STATES HE HAS "BAD WISDOM TEETH" AND HAS HAD PROBLEMS WITH THEM FOR A LONG TIME. NO FEVER NO SWELLING TO FACE TOOK IBUPROFEN TONIGHT WITHOUT RELIEF. HAS SEEN DR. BRIGGS, DENTIST, ABOUT 3 MONTHS AGO, IS SUPPOSED TO BE HAVING ALL OF HIS WISDOM TEETH PULLED--THINKS IT IS SUPPOSED TO BE SCHEDULED FOR SOME TIME IN OCTOBER--DOES NOT REMEMBER WHEN IT IS NO CHRONIC MEDICAL PROBLEMS OTHERWISE, AND DOES NOT TAKE ANY DAILY MEDICATION PCP: GOES TO [facility] FOR ALL MEDICAL CARE Allergies and Home Medications Allergies Coded Allergies: No Known Drug Allergies (Unverified , 09/04/16) Patient Home Medication List Home Medication List Reviewed: Yes Amoxicillin/Potassium Clav (Amox Tr-K Clv 875-125 mg Tab) 875 Mg-125 Mg Tablet, 1 EACH PO BID Prescribed by: WEI BURDICK on 07/16/22 0000 Hydrocodone Bit/Acetaminophen (Lortab 5 Mg Tablet) 1 Each Tablet, 1-2 EACH PO Q6H PRN for PAIN-MODERATE Prescribed by: ALFONSO MEHTA on 06/24/17 0934 Hydrocodone/Acetaminophen (Hydrocodone/Acetaminophen 5 MG/325 MG TAB) 1 Each Tablet, 1 EACH PO Q4H PRN for PAIN-SEVERE Prescribed by: BEENA DONOVAN on 08/03/171927 Ibuprofen (Ibuprofen) 800 Mg Tablet, 800 MG PO Q8H PRN for PAIN Prescribed by: BEENA DONOVAN on 08/03/171927 Ketorolac Tromethamine (Ketorolac Tromethamine) 10 Mg Tablet, 10 MG PO Q6H Prescribed by: WEI BURDICK on 07/16/22 0000 Ondansetron (Zofran Odt) 4 Mg Tab.rapdis, 4 MG PO Q4H Prescribed by: WEI BURDICK on 08/04/17 0252 Sulfamethoxazole/Trimethoprim (Bactrim Ds Tablet) 1 Each Tablet, 1 EACH PO BID Prescribed by: BEENA DONOVAN on 08/03/171927 Tamsulosin HCl (Flomax) 0.4 Mg Cap, 0.4 MG PO DAILY Prescribed by: BEENA DONOVAN on 08/03/171927 Tramadol HCl (Tramadol HCl) 50 Mg Tablet, 50 MG PO Q4H PRN for PAIN Prescribed by: TAMERA INFANTE on 09/04/16 180 Tramadol HCl (Ultram) 50 Mg Tablet, 50 MG PO Q4H Prescribed by: WEI BURDICK on 07/16/22 0001 Review of Systems Review of Systems Constitutional: no symptoms reported Mouth: see HPI Skin: no symptoms reported Neurological: No Symptoms Reported Past Ibjcpzo-Ffuftg-Ftvvbz Hx Patient Social History Tobacco Use?: Yes Tobacco type used: Cigarettes Smoking Status: Current Everyday Smoker Use of E-Cig and/or Vaping dev: No Substance use?: No Alcohol Use?: Yes Alcohol Frequency: Rarely Immunizations Up To Date Tetanus Booster (TDap): More than 5yrs Seasonal Allergies Seasonal Allergies: No Past Medical History Surgeries: No Respiratory: No Cardiac: No Neurological: No Reproductive Disorders: No Genitourinary: Yes (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 oz. 58.638923bj; 20.00 BMI Method:Estimated General Appearance: WD/WN, no apparent distress, other (HOLDING LEFT SIDE OF FACE) Eyes: bilateral eye PERRL, bilateral eye EOMI Ears: bilateral ear TM normal Nose: normal inspection Mouth/Throat: dental tenderness; No excessive drooling, No mandibular swelling, No maxillary swelling; other (LEFT LOWER 3RD MOLAR IS PARTIALLY ERUPTED WITH SURROUNDING GUM TISSUE INFLAMED/ERYTHEMATOUS AND SWOLLEN. NO FACIAL SWELLING. ) Neck: non-tender, full range of motion, supple, normal inspection Cardiovascular: regular rate, rhythm Respiratory: normal breath sounds Neurologic/Psychiatric: food order delivery runner II-XII nml as tested, no motor/sensory deficits, alert, normal mood/affect, oriented x 3 Skin: normal color, warm/dry Progress/Results/Core Measures Results/Orders My Orders Orders - WEI BURDICK DO Ceftriaxone (Rocephin) (07/16/22 00:00) Ketorolac Injection (Toradol Injection) (07/16/22 00:00) Lidocaine 1% Inj 20 Ml (Xylocaine 1% Inj (07/16/22 00:00) Lidocaine 1% Inj 10 Ml (Xylocaine 1% Inj (07/16/22 00:10) Medications Given in ED Current Medications Medications Dose Ordered Sig/Chandler Route Start Time Stop Time Status Last Admin Dose Admin Ceftriaxone Sodium 1,000 mg ONCE ONCE IM 07/16/22 00:00 07/16/22 00:01 DC 07/16/22 00:16 1,000 MG Ketorolac Tromethamine 60 mg ONCE ONCE IM 07/16/22 00:00 07/16/22 00:01 DC 07/16/22 00:16 60 MG Lidocaine HCl 2.1 ml ONCE ONCE INJ 07/16/22 00:00 07/16/22 00:01 DC 07/16/22 00:17 2.1 ML Vital Signs/I&O 07/15/22 07/16/22 23:18 00:28 Temp 36.9 36.9 Pulse 69 69 Resp 20 20 B/P (MAP) 141/93 (109) 141/93 Pulse Ox 100 100 O2 Delivery Room Air Room Air Blood Pressure Mean: 109 Departure Impression Primary Impression: IMPACTED WISDOM TOOTH WITH INFECTION Disposition: HOME, SELF-CARE Condition: Stable Departure-Patient Inst. Decision time for Depature: 23:58 Referrals: NO,LOCAL PHYSICIAN (PCP/Family) Primary Care Physician Patient Instructions: Impacted Tooth (DC), Tooth Abscess (DC) Add. Discharge Instructions: WARM SALT WATER SWISHES TO AREA--SWISH AND SPIT TYLENOL 1 GRAM 4 TIMES A DAY CALL YOUR DENTIST IN THE MORNING AND SCHEDULE A FOLLOW UP APPOINTMENT All discharge instructions reviewed with patient and/or family. Voiced understanding. Scripts Tramadol HCl (Ultram) 50 Mg Tablet 50 MG PO Q4H for Pain, #12 TAB Prov: WEI BURDICK DO 07/16/22 Ketorolac Tromethamine (Ketorolac Tromethamine) 10 Mg Tablet 10 MG PO Q6H for Pain, #15 TAB Prov: WEI BURDICK DO 07/16/22 Amoxicillin/Potassium Clav (Amox Tr-K Clv 875-125 mg Tab) 875 Mg-125 Mg Tablet 1 EACH PO BID for 15 Days, #30 TAB Prov: WEI BURDICK DO 07/16/22 WEI BURDICK DO Jul 16, 2022 00:01
[2022-07-16] MEDS ORDERED: LIDOCAINE 1% INJ 10 ML VIAL ONE (00:10)
[2022-07-16 00:28] VITALS: BP 141/93
== END 2022-07-16 00:29 | disposition home or self-care (01) ==
LOC: EDUNIT# 23:07 → ER 23:09
DX: K01.1 Impacted teeth (principal); F17.210 Nicotine dependence, cigarettes, uncomplicated; Z28.310 Unvaccinated for COVID-19
CPT/HCPCS: 99284

== ENCOUNTER 2022-07-25 01:29 | Emergency (ER) | payer BC ==
[~2022-07-25 01:29] MED LIST changes: +AMOX1TAB12 PO; +KETO10TA PO; +TRAM-42 PO
[2022-07-25] MEDS ORDERED: LIDOCAINE 1% INJ 20 ML VIAL INJ ONE (02:00)
[2022-07-25] MEDS ORDERED: KETOROLAC 60 MG/2 ML VIAL IM ONE (02:00)
[2022-07-25] MEDS ORDERED: LIDOCAINE 2% VISCOUS 15 ML UDC PO ONE (02:00)
[2022-07-25] MEDS ORDERED: cefTRIAXone 1,000 MG VIAL IM ONE (02:00)
--- NOTE | 2022-07-25 02:01 | ED EENT ---
History of Present Illness General Chief Complaint: Dental Problems/Pain Stated Complaint: TOOTH PX Source: patient Exam Limitations: no limitations History of Present Illness Date Seen by Provider: Jul 25, 2022 Time Seen by Provider: 01:44 Initial Comments Patient to the ER by private conveyance from home with chief complaint of severe pain in his left upper posterior molar. He says he has wisdom teeth come out. He has an appointment to have them out on [address] Magallanes. He completed 8 out of 10 days of Augmentin and does not feel like the pain has gotten any better. He has been using topical gels Tylenol and ketorolac at home. He only had ketorolac for 3 days. He says it helped very well. He called the dentist and they recommend he just finish out the antibiotics. He says he cannot sleep or function. No nausea vomiting fevers or chills. He states he used tramadol but did not get any relief from this. Allergies and Home Medications Allergies Coded Allergies: No Known Drug Allergies (Unverified , 09/04/16) Patient Home Medication List Home Medication List Reviewed: Yes Amoxicillin/Potassium Clav (Amox Tr-K Clv 875-125 mg Tab) 875 Mg-125 Mg Tablet, 1 EACH PO BID Prescribed by: WEI BURDICK on 07/16/22 0000 Hydrocodone Bit/Acetaminophen (Lortab 5 Mg Tablet) 1 Each Tablet, 1-2 EACH PO Q6H PRN for PAIN-MODERATE Prescribed by: ALFONSO MEHTA on 06/24/17 0934 Hydrocodone/Acetaminophen (Hydrocodone/Acetaminophen 5 MG/325 MG TAB) 1 Each Tablet, 1 EACH PO Q4H PRN for PAIN-SEVERE Prescribed by: BEENA DONOVAN on 08/03/171927 Ibuprofen (Ibuprofen) 800 Mg Tablet, 800 MG PO Q8H PRN for PAIN Prescribed by: BEENA DONOVAN on 08/03/171927 Ketorolac Tromethamine (Ketorolac Tromethamine) 10 Mg Tablet, 10 MG PO Q6H Prescribed by: WEI BURDICK on 07/16/22 0000 Ondansetron (Zofran Odt) 4 Mg Tab.rapdis, 4 MG PO Q4H Prescribed by: WEI BURDICK on 08/04/17 0252 Sulfamethoxazole/Trimethoprim (Bactrim Ds Tablet) 1 Each Tablet, 1 EACH PO BID Prescribed by: BEENA DONOVAN on 08/03/171927 Tamsulosin HCl (Flomax) 0.4 Mg Cap, 0.4 MG PO DAILY Prescribed by: BEENA DONOVAN on 08/03/171927 Tramadol HCl (Tramadol HCl) 50 Mg Tablet, 50 MG PO Q4H PRN for PAIN Prescribed by: TAMERA INFANTE on 09/04/161805 Tramadol HCl (Ultram) 50 Mg Tablet, 50 MG PO Q4H Prescribed by: WEI BURDICK on 07/16/22 0001 Review of Systems Review of Systems Constitutional: No chills, No diaphoresis Eyes: Denies Blindness, Denies Drainage Ears: Denies Dizziness, Denies Pain Nose: denies clots, denies congestion Mouth: denies clots, denies loose teeth; pain, swelling Throat: denies pain, denies swelling Musculoskeletal: No back pain, No joint pain All Other Systems Reviewed Negative Unless Noted: Yes Past Ymsdpyc-Netiey-Kqqcqf Hx Patient Social History Tobacco Use?: Yes Tobacco type used: Cigarettes Use of E-Cig and/or Vaping dev: No Substance use?: No Alcohol Use?: Yes Alcohol type: Hard Liquor Alcohol Frequency: Daily Immunizations Up To Date Tetanus Booster (TDap): More than 5yrs Seasonal Allergies Seasonal Allergies: No Past Medical History Surgeries: No Respiratory: No Cardiac: No Neurological: No Reproductive Disorders: No Genitourinary: Yes (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 oz. 58.839321km; 20.00 BMI Method:Estimated General Appearance: WD/WN, mild distress Eyes: bilateral eye normal inspection, bilateral eye PERRL, bilateral eye EOMI Ears: bilateral ear auricle normal, bilateral ear canal normal Nose: normal inspection; No active bleeding Mouth/Throat: other (Moderate dental caries and some gingival swelling especially along the left upper posterior molars. No pointing or area of fluctuance to be drained. No significant soft tissue swelling.) Cardiovascular: normal peripheral pulses, regular rate, rhythm Respiratory: no respiratory distress, no accessory muscle use Neurologic/Psychiatric: alert, oriented x 3 Progress/Results/Core Measures Results/Orders My Orders Orders - LEANN SILVER Lidocaine 2% Viscous 15 Ml (Xylocaine Vi (07/25/22 02:00) Ketorolac Injection (Toradol Injection) (07/25/22 02:00) Ceftriaxone (Rocephin) (07/25/22 02:00) Lidocaine 1% Inj 20 Ml (Xylocaine 1% Inj (07/25/22 02:00) Progress Progress Note : Time: 01:58 Progress Note Viscous lidocaine, Rocephin IM, Toradol and will switch him to clindamycin. Instructions to put him on probiotics and keep his follow-up appointment with a dentist. Departure Impression Primary Impression: Dental abscess Disposition: 01 HOME, SELF-CARE Condition: Stable Departure-Patient Inst. Decision time for Depature: 01:59 Referrals: NO,LOCAL PHYSICIAN (PCP/Family) Primary Care Physician Patient Instructions: Tooth Abscess (DC) Add. Discharge Instructions: Chlorhexidine mouth rinse 15 cc twice a day. Rinse for 30 seconds and spit. Continue to brush your teeth as normal. Viscous lidocaine 5 cc applied to gauze directly to the tooth that hurts. Hold in place for 30 minutes without eating or drinking. Do this every 6 hours as needed for pain. Continue to use your ibuprofen 800 mg every 8 hours or naproxen 2 tablets twice a day. You may also use Tylenol 1000 mg every 8 hours. Clindamycin take 3 capsules with food 3 times a day for a total of 9 capsules daily for the next week. Take probiotics at least twice a day. Take it 30 minutes before or after the antibiotics. This will help prevent upset gut. Keep your follow-up appointment with the dentist. All discharge instructions reviewed with patient and/or family. Voiced understanding. Scripts Chlorhexidine Gluconate (Chlorhexidine Gluconate) 0.12 % Mouthwash 15 ML MM BID for 14 Days, #473 ML 0 Refills Prov: LEANN SILVER 07/25/22 Clindamycin HCl (Clindamycin HCl) 150 Mg Capsule 450 MG PO TID for 7 Days, #54 CAP 0 Refills Prov: LEANN SILVER 07/25/22 LEANN SILVER Jul 25, 2022:01
[2022-07-25] MEDS ORDERED: CLIN150C20 PO (02:04)
[2022-07-25] MEDS ORDERED: NFCHLORHGL MM (02:04)
[2022-07-25 02:32] VITALS: BP 119/81
== END 2022-07-25 02:32 | disposition home or self-care (01) ==
LOC: EDUNIT# 01:29 → ER 01:32
DX: K04.7 Periapical abscess without sinus (principal); F17.210 Nicotine dependence, cigarettes, uncomplicated
CPT/HCPCS: 96372; 99284